=== PATIENT | female | born 1970 | race Caucasian/White ===

== ENCOUNTER 2016-12-01 19:06 | Emergency (ER) | payer MEDICARE, MEDICAID ==
[2012-05-14 12:40] VITALS: BMI 46.0
== END 2016-12-01 21:10 | disposition home or self-care (01) ==
LOC: D.ER 19:06
DX: S70.01XA Contusion of right hip, initial encounter (principal); W01.0XXA Fall on same level from slipping, tripping and stumbling without subsequent striking against object, initial encounter; Y93.89 Activity, other specified; Y92.019 Unspecified place in single-family (private) house as the place of occurrence of the external cause; C41.9 Malignant neoplasm of bone and articular cartilage, unspecified; I10 Essential (primary) hypertension; E78.5 Hyperlipidemia, unspecified

== ENCOUNTER → 2017-11-19 15:30 | Outpatient (CLI) | payer MEDICARE, MEDICAID ==
[2012-05-14 12:40] VITALS: BMI 46.0
[2017-11-19 16:10] LABS: BASOPHILS 0.2 % (0-2); LYMPHOCYTES 15.3 % (15-50); MEAN PLATELET VOLUME 8.7 fL (7.4-10.4)
[2017-11-19 16:16] LABS: HEMOGLOBIN 7.5 g/dL (12-16)
[2017-11-19 16:19] LABS: HEMATOCRIT 24.8 % (36.0-48.0); IMMATURE GRANULOCYTES 0.6 % (0-5); MCH 24.7 pg (26.0-34.0); MCHC 30.2 g/dL (31.0-37.0); MCV 81.6 fL (80.0-100.0); MONOCYTES 8.9 % (2-11); PLATELET COUNT 396 10x3/uL (130-400); RBC 3.04 10x6/uL (4.00-5.40); RDW 18.1 % (11.5-14.5); WBC 9.5 10x3/uL (4.8-10.8)
== END | disposition home or self-care (01) ==
LOC: D.LABREF 15:30
PROVIDERS: Orthopaedic Surgery
DX: T84.050 Periprosthetic osteolysis of internal prosthetic right hip joint (principal)

== ENCOUNTER → 2017-11-26 14:54 | Outpatient (CLI) | payer MEDICARE, MEDICAID ==
[2012-05-14 12:40] VITALS: BMI 46.0
[2017-11-26 15:19] LABS: BASOPHILS 0.4 % (0-2); EOSINOPHILS 5.4 % (0-7); IMMATURE GRANULOCYTES 0.7 % (0-5); LYMPHOCYTES 25.1 % (15-50); MCH 23.7 pg (26.0-34.0); MCHC 29.6 g/dL (31.0-37.0); MCV 79.9 fL (80.0-100.0); MEAN PLATELET VOLUME 8.5 fL (7.4-10.4); MONOCYTES 10.1 % (2-11); NEUTROPHILS 58.3 % (40-80); PLATELET COUNT 420 10x3/uL (130-400); RBC 3.38 10x6/uL (4.00-5.40); WBC 7.4 10x3/uL (4.8-10.8)
== END | disposition home or self-care (01) ==
LOC: D.LABREF 14:54
PROVIDERS: Orthopaedic Surgery
DX: T84.51XA Infection and inflammatory reaction due to internal right hip prosthesis, initial encounter (principal); Z51.81 Encounter for therapeutic drug level monitoring; Z79.2 Long term (current) use of antibiotics

== ENCOUNTER → 2017-12-03 15:00 | Outpatient (CLI) | payer MEDICARE ==
[2012-05-14 12:40] VITALS: BMI 46.0
[2017-12-03 17:51] LABS: BASOPHILS 0.4 % (0-2); EOSINOPHILS 4.9 % (0-7); HEMATOCRIT 27.5 % (36.0-48.0); IMMATURE GRANULOCYTES 0.2 % (0-5); MCH 23.5 pg (26.0-34.0); MCHC 29.1 g/dL (31.0-37.0); MCV 80.6 fL (80.0-100.0); MEAN PLATELET VOLUME 8.8 fL (7.4-10.4); MONOCYTES 8.6 % (2-11); NEUTROPHILS 57.9 % (40-80); PLATELET COUNT 356 10x3/uL (130-400); RBC 3.41 10x6/uL (4.00-5.40); RDW 17.6 % (11.5-14.5); WBC 5.4 10x3/uL (4.8-10.8)
== END | disposition home or self-care (01) ==
LOC: D.LABREF 15:00
PROVIDERS: Pediatrics
DX: Z79.2 Long term (current) use of antibiotics (principal)

== ENCOUNTER → 2017-12-10 14:14 | Outpatient (CLI) | payer MEDICARE ==
[2012-05-14 12:40] VITALS: BMI 46.0
[2017-12-10 15:10] LABS: BASOPHILS 0.4 % (0-2); EOSINOPHILS 4.4 % (0-7); HEMATOCRIT 29.3 % (36.0-48.0); HEMOGLOBIN 8.4 g/dL (12-16); IMMATURE GRANULOCYTES 0.6 % (0-5); LYMPHOCYTES 30.6 % (15-50); MCH 23.1 pg (26.0-34.0); MCHC 28.7 g/dL (31.0-37.0); MCV 80.5 fL (80.0-100.0); MONOCYTES 9.7 % (2-11); NEUTROPHILS 54.3 % (40-80); PLATELET COUNT 345 10x3/uL (130-400); RBC 3.64 10x6/uL (4.00-5.40); RDW 17.3 % (11.5-14.5); WBC 5.5 10x3/uL (4.8-10.8)
== END | disposition home or self-care (01) ==
LOC: D.LABREF 14:14
PROVIDERS: Orthopaedic Surgery
DX: T84.51XD Infection and inflammatory reaction due to internal right hip prosthesis, subsequent encounter (principal); Z51.81 Encounter for therapeutic drug level monitoring; Z79.2 Long term (current) use of antibiotics

== ENCOUNTER → 2017-12-17 13:48 | Outpatient (CLI) | payer MEDICARE ==
[2012-05-14 12:40] VITALS: BMI 46.0
[2017-12-17 13:58] LABS: BASOPHILS 0.3 % (0-2); EOSINOPHILS 4.5 % (0-7); HEMATOCRIT 29.6 % (36.0-48.0); HEMOGLOBIN 8.6 g/dL (12-16); IMMATURE GRANULOCYTES 0.2 % (0-5); LYMPHOCYTES 27.4 % (15-50); MCH 23.4 pg (26.0-34.0); MCHC 29.1 g/dL (31.0-37.0); MCV 80.7 fL (80.0-100.0); MEAN PLATELET VOLUME 9.2 fL (7.4-10.4); NEUTROPHILS 57.6 % (40-80); PLATELET COUNT 316 10x3/uL (130-400); RBC 3.67 10x6/uL (4.00-5.40); RDW 17.6 % (11.5-14.5); WBC 6.3 10x3/uL (4.8-10.8)
== END | disposition home or self-care (01) ==
LOC: D.LABREF 13:48
PROVIDERS: Orthopaedic Surgery
DX: T84.51XA Infection and inflammatory reaction due to internal right hip prosthesis, initial encounter (principal); Z51.81 Encounter for therapeutic drug level monitoring; Z79.2 Long term (current) use of antibiotics

== ENCOUNTER → 2019-04-30 12:12 | Outpatient (CLI) | payer MEDICARE ==
[2012-05-14 12:40] VITALS: BMI 46.0
== END | disposition home or self-care (01) ==
LOC: D.US 12:12
PROVIDERS: ATTEND Family Medicine
DX: I82.402 Acute embolism and thrombosis of unspecified deep veins of left lower extremity (principal)

== ENCOUNTER 2019-10-31 13:12 | Emergency (ER) | payer MEDICARE, MEDICAID ==
[~2019-10-31] VITALS: Ht 162.6 cm; Wt 143.2 kg
[2019-10-31 13:15] VITALS: Ht 162.6 cm; Wt 143.2 kg
[2019-10-31] MEDS ORDERED: ROXICODONE15 MG (13:24)
[2019-10-31] MEDS ORDERED: K-TAB10 MEQ (13:24)
[2019-10-31] MEDS ORDERED: FUROSEMIDE40 MG (13:24)
[2019-10-31] MEDS ORDERED: NEURONTIN 300300 MG (13:25)
[2019-10-31] MEDS ORDERED: ZOLOFT100 MG (13:25)
[2019-10-31] MEDS ORDERED: DIFLUCAN150 MG (13:27)
[2019-10-31] MEDS ORDERED: CIPROFLOXACIN750 MG (13:27)
[2019-10-31] MEDS ORDERED: MOBIC7.5 MG PO (13:27)
[2019-10-31] MEDS ORDERED: SPIRIVA18 MCG (13:27)
[2019-10-31] MEDS ORDERED: XANAX1 MG (13:28)
[2019-10-31] MEDS ORDERED: LIPITOR20 MG (13:28)
[2019-10-31] MEDS ORDERED: PERCOCET 5-3251 TAB (13:28)
[2019-10-31] MEDS ORDERED: VIBRAMYCIN 100100 MG (13:28)
[2019-10-31] MEDS ORDERED: NEURONTIN600 MG (13:32)
[2019-10-31] MEDS ORDERED: FLOVENT HFA 11012 GM (13:32)
[2019-10-31] MEDS ORDERED: GLUCOPHAGE1000 MG PO (13:32)
[2019-10-31] MEDS ORDERED: CYMBALTA60 MG PO (13:33)
[2019-10-31] MEDS ORDERED: ZOFRAN4 MG (13:33)
[2019-10-31] MEDS ORDERED: OXYBUTYNIN CHLOR5 MG PO (13:33)
[2019-10-31] MEDS ORDERED: TRAZODONE HCL150 MG PO (13:34)
[2019-10-31] MEDS ORDERED: GLUCOTROL 5 MG T5 MG PO (13:34)
[2019-10-31] MEDS ORDERED: CYCLOBENZAPRINE10 MG (13:34)
[2019-10-31] MEDS ORDERED: ATARAX 25 MG TA25 MG PO (13:35)
[2019-10-31] MEDS ORDERED: FISH OIL 1,0001 CA1 PO (13:36)
[2019-10-31] MEDS ORDERED: ASPIRIN325 MG PO (13:36)
[2019-10-31] MEDS ORDERED: CENTRUM SILVER1 EAC3 PO (13:36)
[2019-10-31] MEDS ORDERED: FERROUS SULFAT325 MG PO (13:37)
[2019-10-31] MEDS ORDERED: VITAMIN D10000 UNI1 PO (13:37)
[2019-10-31] MEDS ORDERED: MS CONTIN15 MG PO (13:38)
[2019-10-31 21:05] VITALS: BP 122/71
== END 2019-10-31 21:05 | disposition other institution (70) ==
LOC: D.ER 13:12
DX: T84.020A Dislocation of internal right hip prosthesis, initial encounter (principal); W19.XXXA Unspecified fall, initial encounter; Y93.9 Activity, unspecified; Y92.9 Unspecified place or not applicable; E11.9 Type 2 diabetes mellitus without complications; I10 Essential (primary) hypertension; Z72.0 Tobacco use; Z79.84 Long term (current) use of oral hypoglycemic drugs; C41.9 Malignant neoplasm of bone and articular cartilage, unspecified